=== PATIENT | female | born 1995 | race Caucasian/White ===

== ENCOUNTER 2025-03-20 13:39 | Inpatient (IN) | payer OTHER ==
[~2025-03-20] VITALS: Ht 170.2 cm; Wt 101.2 kg
[2025-03-20 13:54] VITALS: BP 135/79
[2025-03-20] MEDS ORDERED: MAGNESIUM HYDROXIDE/AL HYDROX 30 ML CUP PO PRN (14:00)
[2025-03-20] MEDS ORDERED: TERBUTALINE SULFATE 1 MG/ML AMP SUB-Q PRN (14:00)
[2025-03-20] MEDS ORDERED: LIDOCAINE HCL 1% 30 ML SDV INJ PRN (14:00)
[2025-03-20] MEDS ORDERED: LACTATED RINGER'S 1,000 ML IV PRN (14:00)
[2025-03-20] MEDS ORDERED: CALCIUM CARBONATE 500 MG CHEW PO PRN (14:00)
[2025-03-20 14:49] LABS: MCH 33.4 PG (25.6-32.2); MCHC 35.5 g/dL (32.2-35.5); MCV 94.0 fL (79.4-94.8); RBC 3.68 M/uL (3.93-5.22)
[2025-03-20 14:58] LABS: PROTEIN, RANDOM URINE 14.0 mg/dL (NOT ESTABLISHED)
[2025-03-20 15:09] LABS: AMPHETAMINES, URINE NEGATIVE (NEGATIVE); BARBITURATES, URINE NEGATIVE (NEGATIVE); BENZODIAZEPINE, URINE NEGATIVE (NEGATIVE); CANNABINOID, URINE POSITIVE (NEGATIVE); COCAINE, URINE NEGATIVE (NEGATIVE); ECSTASY, URINE NEGATIVE (NEGATIVE); FENTANYL, URINE NEGATIVE (NEGATIVE); METHADONE, URINE NEGATIVE (NEGATIVE); OPIATES, URINE NEGATIVE (NEGATIVE); OXYCODONE, URINE NEGATIVE (NEGATIVE); PHENCYCLIDINE, URINE NEGATIVE (NEGATIVE)
[2025-03-20 15:16] LABS: ALT (SGPT) 20.0 U/L (14-59); AST (SGOT) 15.0 U/L (15-37); GLOMERULAR FILTRATION RATE,EST 135.0 mL/min (>60); LACTATE DEHYDROGENASE 154.0 U/L (81-234); PROTEIN, TOTAL 7.1 g/dL (6.4-8.2); UREA NITROGEN 4.0 mg/dL (7-18)
[2025-03-20 15:31] LABS: ABO B; ANTIBODY SCREEN NEGATIVE; RH POSITIVE
[2025-03-20] MEDS ORDERED: miSOPROStol 25 MCG TAB PV SCH (18:00)
[2025-03-20] MEDS ORDERED: OXYTOCIN/0.9 % SODIUM CHLORIDE 500 ML IV SCH (18:30)
[2025-03-21] MEDS ORDERED: OXYTOCIN/0.9 % SODIUM CHLORIDE 500 ML IV SCH ×2 (09:15→23:00)
[2025-03-21] MEDS ORDERED: ROPIVACAINE 0.2% 200 ML BAG ONE (18:38)
[2025-03-21] MEDS ORDERED: ePHEDrine sulfate 5 MG/ML SYRINGE IV PRN (19:15)
[2025-03-21] MEDS ORDERED: LACTATED RINGER'S 2,000 ML IV ONE (19:15)
[2025-03-21] MEDS ORDERED: ROPIVACAINE 0.2% 200 ML BAG EPIDURAL SCH (19:15)
[2025-03-21] MEDS ORDERED: LACTATED RINGER'S 500 ML IV PRN (19:15)
[2025-03-22] MEDS ORDERED: TRANEXAMIC ACID IN NACL,ISO-OS 100 ML IV ONE (00:31)
[2025-03-22 00:52] LABS: BASOPHILS 0.1 % (0.1-1.2); EOSINOPHILS 0 % (0.7-5.8); LYMPHOCYTES 10.4 % (19.3-51.7); MCH 34.0 PG (25.6-32.2); MCHC 35.5 g/dL (32.2-35.5); MCV 95.6 fL (79.4-94.8); MONOCYTES 5.5 % (4.7-12.5); NEUTROPHILS 83.7 % (34.0-71.1); RBC 3.18 M/uL (3.93-5.22)
[2025-03-22] MEDS ORDERED: BENZOCAINE 60 ML AEROSOL TOP PRN (01:00)
[2025-03-22] MEDS ORDERED: CALCIUM CARBONATE 500 MG CHEW PO PRN (01:00)
[2025-03-22] MEDS ORDERED: IBUPROFEN 600 MG TAB PO PRN (01:00)
[2025-03-22] MEDS ORDERED: WITCH HAZEL/GLYCERIN 1 EA PAD TOP PRN (01:00)
[2025-03-22] MEDS ORDERED: ACETAMINOPHEN 325 MG TAB PO PRN (01:00)
[2025-03-22] MEDS ORDERED: LIDOCAINE 2% VISCOUS 6 ML SYR TOP ONE ×2 (01:00)
[2025-03-22] MEDS ORDERED: OXYTOCIN/0.9 % SODIUM CHLORIDE 500 ML IV SCH (01:00)
[2025-03-22] MEDS ORDERED: MAGNESIUM HYDROXIDE/AL HYDROX 30 ML CUP PO PRN (01:00)
[2025-03-22] MEDS ORDERED: HYDROCORTISONE ACETATE 25 MG SUPP PR PRN (01:00)
[2025-03-22] MEDS ORDERED: MAGNESIUM HYDROXIDE 30 ML UDC PO PRN (01:00)
[2025-03-22] MEDS ORDERED: miSOPROStol 200 MCG TAB PR ONE (02:15)
[2025-03-22] MEDS ORDERED: miSOPROStol 200 MCG TAB BUCCAL ONE (02:15)
[2025-03-22] MEDS ORDERED: TRANEXAMIC ACID IN NACL,ISO-OS 1,000 MG/100 ML PIGGYBACK IV ONE (02:15)
[2025-03-22 03:03] LABS: IS CROSSMATCH COMPATIBLE
[2025-03-22 03:03] LABS: ABO B; RH POSITIVE
[2025-03-22 06:23] LABS: BASOPHILS 0.1 % (0.1-1.2); EOSINOPHILS 0.1 % (0.7-5.8); LYMPHOCYTES 12.2 % (19.3-51.7); MCH 33.4 PG (25.6-32.2); MCHC 35.5 g/dL (32.2-35.5); MCV 94.3 fL (79.4-94.8); MONOCYTES 4.9 % (4.7-12.5); NEUTROPHILS 82.5 % (34.0-71.1); RBC 3.17 M/uL (3.93-5.22)
[2025-03-22 06:42] LABS: INR 1.1 (0.80-1.30); PROTIME 13.4 Sec (11.2-14.2)
[2025-03-22] MEDS ORDERED: SENNOSIDES/DOCUSATE 1 EA TAB PO SCH (09:00)
--- NOTE | 2025-03-22 12:39 | PR ---
[facility] [address] [facility] [place], [place] [address] Signed PP Progress Notes Datetime Report Generated by CPN: 03/22/2025 12:39 SUBJECTIVE: [id number] Pain: Within Normal Limits Nausea/Vomiting: Denies Vital Signs: [id number] Vital Signs: Reviewed; Within Normal Limits Respiratory: Normal Abdomen/Uterus: Normal Lochia: Normal Incision: Not Applicable Progress: Normal IMPRESSION/PLAN/PROCEDURES: [id number] Impression: Normal Progression Plan: Continue Present Management Progress Notes: DOD check in. Pt doing really well. BF without difficulty. States she was a little dizzy the first time out of bed but has since resolved. Lochia is light. VS are stable. Labs are stable. No concerns. Anticipate discharge tomorrow morning. Signing Physician: Yajaira Sifuentes CNM Copies: ~ *Electronically Signed* 03/22/25 1239 YAJAIRA SIFUENTES CNM PATIENT NAME: MARCELO BLANC PROGRESS NOTE DATE OF : 89 PHYSICIAN: YAJAIRA SIFUENTES CNM RPT #: [id number] REPORT IS CONFIDENTIAL AND NOT TO BE RELEASED WITHOUT AUTHORIZATION
[2025-03-23 05:55] LABS: MCH 33.5 PG (25.6-32.2); MCHC 34.9 g/dL (32.2-35.5); MCV 95.8 fL (79.4-94.8); RBC 2.84 M/uL (3.93-5.22)
--- NOTE | 2025-03-23 08:09 | PR ---
[facility] [address] [facility] [place], [place] [address] Signed PP Progress Notes Datetime Report Generated by CPN: 03/23/2025 08:09 Pain: Within Normal Limits Nausea/Vomiting: Denies Vital Signs: Reviewed; Within Normal Limits Respiratory: Normal Abdomen/Uterus: Normal Lochia: Normal Vulva/Perineum: Normal Breasts: Not Done CVA Tenderness: Not Done Extremities: Normal Incision: Not Applicable Progress: Normal Impression: Normal Progression Plan: Discharge Procedures: None Progress Notes: PPD #1 S/P . Pt is doing really well. BF without difficulty. Denies dizziness with ambulation. BPs have normalized. Lochia is light. She desires discharge home today. PP PreE precautions reviewed. F/U in office in 2 weeks. D/C instructions reviewed. Signing Physician: Yajaira Sifuentes CNM Copies: ~ *Electronically Signed* 03/23/25 08 YAJAIRA SIFUENTES CNM PATIENT NAME: MARCELO BLANC PROGRESS NOTE DATE OF : 97 PHYSICIAN: YAJAIRA SIFUENTES CNM RPT #: [id number] REPORT IS CONFIDENTIAL AND NOT TO BE RELEASED WITHOUT AUTHORIZATION
== END 2025-03-23 10:30 | disposition home or self-care (01) | DRG 806 ==
LOC: FBC 13:39
PROVIDERS: ADMIT Advanced Practice Midwife; ATTEND Advanced Practice Midwife
PROC: 10E0XZZ Delivery of Products of Conception, External Approach (ICD-10-PCS; principal; 2025-03-21)
PROC: 0KQM0ZZ Repair Perineum Muscle, Open Approach (ICD-10-PCS; 2025-03-21)
PROC: 10907ZC Drainage of Amniotic Fluid, Therapeutic from Products of Conception, Via Natural or Artificial Opening (ICD-10-PCS; 2025-03-21)
PROC: 3E0DXGC Introduction of Other Therapeutic Substance into Mouth and Pharynx, External Approach (ICD-10-PCS; 2025-03-21)
DX: O13.4 Gestational [pregnancy-induced] hypertension without significant proteinuria, complicating childbirth (principal); D62 Acute posthemorrhagic anemia; Z37.0 Single live birth; O98.52 Other viral diseases complicating childbirth; Z3A.38 38 weeks gestation of pregnancy; O72.1 Other immediate postpartum hemorrhage; O90.81 Anemia of the puerperium; O76 Abnormality in fetal heart rate and rhythm complicating labor and delivery; O70.1 Second degree perineal laceration during delivery; B00.9 Herpesviral infection, unspecified; Z88.8 Allergy status to other drugs, medicaments and biological substances; Z88.0 Allergy status to penicillin; Z79.899 Other long term (current) drug therapy
CPT/HCPCS: 01960; 36415; 51701; 80053; 80307; 82565; 82570; 83615; 84156; 84550; 85025; 85027; 85610; 85730; 86850; 86900; 86901; 86922; J2405; J2795; J7121; Q0177

== ENCOUNTER 2025-04-11 19:17 | Emergency (ER) | payer OTHER ==
[~2025-04-11] VITALS: Ht 170.2 cm; Wt 98.0 kg
--- OUTSIDE RECORDS SUMMARY | ~2025-04-11 | XMS | Continuity of Care Document ---
Demographics + + + | Address | [address] | | | [place] [address] | + + + | Preferred Language | Unknown | + + + | Marital Status | | + + + | Rastafari Affiliation | Unknown | + + + | Race | White | + + + | Ethnic Group | Not or | + + + Author + + + | Author | [place] | + + + | Organization | [place] | + + + | Address | [address] | | | [place] [address] | + + + | Phone | | + + + Care Team Providers + + + + | Care Paraprofessional Education Assistant Name | Role | Phone | + + + + Unavailable | Unavailable | + + + + Unavailable | Unavailable | + + + + Allergies No information. Encounters No information. Functional Status No information. Immunizations No information. Medications No information. Problems + + + + | date | description | facility | + + + + | 2025-03-23 00:00 | Anemia | [facility] | | | | [facility] | + + + + Procedures No information. Results/Labs +--------+--------+ +---------+--------+---------+ | test | date | facility | value | unit | notes | +--------+--------+ +---------+--------+---------+ + + | Result panel 1 | + + + + + +------+---------+ + | Glucose | 2025-03-20 | | 90 | mg/dL | (missing) | | [facility] | 14:30:08 | [facility] | | | | + + + +------+---------+ + + + | Result panel 2 | + + + + + +-----+---------+ + | BUN | 2025-03-20 | | 4 | mg/dL | (missing) | | [facility] | 14:30:08 | [facility] | | | | + + + +-----+---------+ + + + | Result panel 3 | + + + + + +--------+---------+ + | Creat | 2025-03-20 | | 0.45 | mg/dL | (missing) | | SerPl-mCnc | 14:30:08 | [facility] | | | | + + + +--------+---------+ + + + | Result panel 4 | + + + + + +-------+ + + | eGFRcr | 2025-03-20 | | 135 | (missing) | (missing) | | SerPlBld | 14:30:08 | [facility] | | | | | CKD-EPI 2020 | [facility] | | | | + + + +-------+ + + + + | Result panel 5 | + + + + + +--------+ + + | BUN/Creat | 2025-03-20 | | 8.88 | (missing) | (missing) | | SerPl | 14:30:08 | [facility] | | | | + + + +--------+ + + + + | Result panel 6 | + + + + + +-------+ + + | Sodium | 2025-03-20 | | 135 | (missing) | (missing) | | SerPl-sCnc | 14:30:08 | [facility] | | | | + + + +-------+ + + + + | Result panel 7 | + + + + + +-------+ + + | Potassium | 2025-03-20 | | 3.7 | (missing) | (missing) | | SerPl-sCnc | 14:30:08 | [facility] | | | | + + + +-------+ + + + + | Result panel 8 | + + + + + +-------+ + + | Chloride | 2025-03-20 | | 101 | (missing) | (missing) | | SerPl-sCnc | 14:30:08 | [facility] | [facility] | | | | + + + +-------+ + + + + | Result panel 9 | + + + + + +------+ + + | CO2 | 2025-03-20 | | 25 | (missing) | (missing) | | SerPl-sCnc | 14:30:08 | [facility] | [facility] | | | | + + + +------+ + + + + | Result panel 10 | + + + + + +--------+ + + | Anion Gap | 2025-03-20 | | 12.7 | (missing) | (missing) | | SerPl | 14:30:08 | [facility] | | | | | Calculated.4 | [facility] | | | | + + + +--------+ + + + + | Result panel 11 | + + + + + +-------+---------+ + | Urate | 2025-03-20 | | 4.4 | mg/dL | (missing) | | [facility] | 14:30:08 | [facility] | | | | [facility] | | | | + + + +-------+---------+ + + + | Result panel 12 | + + + + + +-------+---------+ + | Calcium | 2025-03-20 | | 8.9 | mg/dL | (missing) | | SerPl-mCnc | 14:30:08 | [facility] | | | | + + + +-------+---------+ + + + | Result panel 13 | + + + + + +-------+ + + | Prot | 2025-03-20 | | 7.1 | (missing) | (missing) | | SerPl-mCnc | 14:30:08 | [facility] | | | | + + + +-------+ + + + + | Result panel 14 | + + + + + +-------+ + + | Albumin | 2025-03-20 | | 2.9 | (missing) | (missing) | | SerPl-mCnc | 14:30:08 | [facility] | | [facility] | | | | + + + +-------+ + + + + | Result panel 15 | + + + + + +-------+ + + | Globulin | 2025-03-20 | | 4.2 | (missing) | (missing) | | Ser-mCnc | 14:30:08 | [facility] | [facility] | | | | + + + +-------+ + + + + | Result panel 16 | + + + + + +--------+ + + | | 2025-03-20 | | 0.69 | (missing) | (missing) | | Albumin/Glob | 14:30:08 | [facility] | | | | | SerPl | [facility] | | | | + + + +--------+ + + + + | Result panel 17 | + + + + + +-------+---------+ + | Bilirub | 2025-03-20 | | 0.6 | mg/dL | (missing) | | SerPl-mCnc | 14:30:08 | [facility] | | | | + + + +-------+---------+ + + + | Result panel 18 | + + + + + +------+ + + | AST | 2025-03-20 | | 15 | (missing) | (missing) | | SerPl-cCnc | 14:30:08 | [facility] | | | | + + + +------+ + + + + | Result panel 19 | + + + + + +------+ + + | ALT | 2025-03-20 | | 20 | (missing) | (missing) | | SerPl-cCnc | 14:30:08 | [facility] | | | | + + + +------+ + + + + | Result panel 20 | + + + + + +-------+ + + | ALP | 2025-03-20 | | 212 | (missing) | (missing) | | [facility] | 14:30:08 | [facility] | | | | + + + +-------+ + + + + | Result panel 21 | + + + + + +-------+ + + | | 2025-03-20 | | 154 | (missing) | (missing) | | (unavailable | 14:30:08 | [facility] | | | | | ) | | - | | | | | | | [facility] | | | | + + + +-------+ + + + + | Result panel 22 | + + + + + +---------+---------+ + | Creat | 2025-03-20 | | 47.64 | mg/dL | (missing) | | [facility] | 14:30:08 | [facility] | | [facility] | | | | + + + +---------+---------+ + + + | Result panel 23 | + + + + + + + + + | Prot/Creat | 2025-03-20 | | 0.2900 | (missing) | (missing) | | Ur-Rto | 14:30:08 | [facility] | | | | + + + + + + + + + | Result panel 24 | + + + + + +------+---------+ + | Prot | 2025-03-20 | | 14 | mg/dL | (missing) | | Ur-mCnc | 14:30:08 | [facility] | | | | [facility] | | | | + + + +------+---------+ + + + | Result panel 25 | + + + + + + + + + | | 2025-03-20 | | NEGATIVE | (missing) | (missing) | | Amphetamines | 14:30:08 | [facility] | | | | | Ur Ql | [facility] | Scn>500 | | [facility] | [facility] | ng/mL | | [facility] | | | | + + + + + + + + + | Result panel 26 | + + + + + + + + + | | 2025-03-20 | | NEGATIVE | (missing) | (missing) | | Barbiturates | 14:30:08 | [facility] | | | | | Ur Ql | [facility] - [facility] | | [facility] | | Scn>300 | | [facility] | | | | ng/mL | | [facility] | | | | + + + + + + + + + | Result panel 27 | + + + + + + + + + | Benzodiaz | 2025-03-20 | | NEGATIVE | (missing) | (missing) | | Ur Ql | 14:30:08 | [facility] | | | | | Scn>300 | [facility] ng/mL | [facility] | | | | + + + + + + + + + | Result panel 28 | + + + + + + + + + | Cocaine Ur | 2025-03-20 | | NEGATIVE | (missing) | (missing) | | Ql Scn | 14:30:08 | [facility] | | | | | | [facility] | | | | + + + + + + + + + | Result panel 29 | + + + + + + + + + | | 2025-03-20 | | NEGATIVE | (missing) | (missing) | | Buprenorphin | 14:30:08 | [facility] | | | | | e Nehemiah Rossi Scn | [facility] | | | | + + + + + + + + + | Result panel 30 | + + + + + + + + + | oxyCODONE | 2025-03-20 | | NEGATIVE | (missing) | (missing) | | Ur Ql Scn | 14:30:08 | [facility] | | | | | | [facility] | | | | + + + + + + + + + | Result panel 31 | + + + + + + + + + | MDMA Ur Ql | 2025-03-20 | | NEGATIVE | (missing) | (missing) | | Scn | 30:08 | [facility] | | | | | | [facility] | | | | + + + + + + + + + | Result panel 32 | + + + + + + + + + | Methadone | 2025-03-20 | | NEGATIVE | (missing) | (missing) | | Ur Ql | 14:30:08 | [facility] | | | | | Scn>300 | [facility] ng/mL | [facility] | | | | + + + + + + + + + | Result panel 33 | + + + + + + + + + | Opiates Ur | 2025-03-20 | | NEGATIVE | (missing) | (missing) | | Ql Scn | 14:30:08 | [facility] | | | | | | [facility] | | | | + + + + + + + + + | Result panel 34 | + + + + + + + + + | PCP Ur Ql | 2025-03-20 | | NEGATIVE | (missing) | (missing) | | Scn>25 ng/mL | 14:30:08 | [facility] | | | | + + + + + + + + + | Result panel 35 | + + + + + + + + + | THC Ur Ql | 2025-03-20 | | POSITIVE | (missing) | (missing) | | Scn>50 ng/mL | 14:30:08 | [facility] | | | | | | [facility] | | | | + + + + + + + + + | Result panel 36 | + + + + + + + + + | fentaNYL Ur | 2025-03-20 | | NEGATIVE | (missing) | (missing) | | Ql Scn | 14:30:08 | [facility] | | | | | | [facility] | | | | + + + + + + + + + | Result panel 37 | + + + + + + + + + | IAT Poly-Sp | 2025-03-20 | | NEGATIVE | (missing) | (missing) | | Reag SerPl | 14:30:08 | [facility] | | | | | Ql | [facility] | | | | + + + + + + + + + | Result panel 38 | + + + + + + + + + | Karlos XM | 2025-03-20 | | COMPATIBLE | (missing) | (missing) | | SerPl Imm | :30:08 | [facility] | | | | | Spin-Imp | [facility] | | | | + + + + + + + + + | Result panel 39 | + + + + + + + + + | Karlos XM | 2025-03-20 | | COMPATIBLE | (missing) | (missing) | | SerPl Imm | 14:30:08 | [facility] | | | | | Spin-Imp | [facility] | | | | + + + + + + + + + | Result panel 40 | + + + + + + + + + | Transf Band | 2025-03-20 | | BLOOD IN | (missing) | (missing) | | Num Patient | 14:30:08 | [facility] | LAB | | | | | [facility] | | | | + + + + + + + + + | Result panel 41 | + + + + + + + + + | Rh Bld | 2025-03-22 | | POSITIVE | (missing) | (missing) | | | 00:46:08 | [facility] | | | | | | [facility] | | | | + + + + + + + + + | Result panel 42 | + + + + + +-----+ + + | ABO Group | 2025-03-22 | | B | (missing) | (missing) | | Bld | 00:46:08 | [facility] | | | | | | [facility] | | | | + + + +-----+ + + + + | Result panel 43 | + + + + + +--------+ + + | Neutrophils | 2025-03-22 | | 82.5 | (missing) | (missing) | | NFr Bld | 05:33:08 | [facility] | | | | | Auto | | [facility] | | | | + + + +--------+ + + + + | Result panel 44 | + + + + + +--------+ + + | Lymphocytes | 2025-03-22 | | 12.2 | (missing) | (missing) | | NFr Bld | 05:33:08 | [facility] | | | | | Auto | | [facility] | | | | + + + +--------+ + + + + | Result panel 45 | + + + + + +-------+ + + | Monocytes | 2025-03-22 | | 4.9 | (missing) | (missing) | | NFr Bld Auto | 05:33:08 | [facility] | | | | | | [facility] | | | | + + + +-------+ + + + + | Result panel 46 | + + + + + +-------+ + + | Eosinophil | 2025-03-22 | | 0.1 | (missing) | (missing) | | NFr Bld Auto | 05:33:08 | [facility] | | | | [facility] | | | | + + + +-------+ + + + + | Result panel 47 | + + + + + +-------+ + + | Basophils | 2025-03-22 | | 0.1 | (missing) | (missing) | | NFr Bld Auto | 05:33:08 | [facility] | | | | | | [facility] | | | | + + + +-------+ + + + + | Result panel 48 | + + + + + +--------+ + + | Prothrombin | 2025-03-22 | | 13.4 | (missing) | (missing) | | time | 05:33:08 | [facility] | | | | | | [facility] | | | | + + + +--------+ + + + + | Result panel 49 | + + + + + +--------+ + + | INR PPP | 2025-03-22 | | 1.10 | (missing) | (missing) | | | 05:33:08 | [facility] | | | | + + + +--------+ + + + + | Result panel 50 | + + + + + +--------+ + + | aPTStephanie PPP | 2025-03-22 | | 28.6 | (missing) | (missing) | | | 05:33:08 | [facility] | [facility] | | | | [facility] | | | | + + + +--------+ + + + + | Result panel 51 | + + + + + +--------+ + + | WBC # Bld | 2025-03-23 | | 6.63 | (missing) | (missing) | | Auto | 05:46:08 | [facility] | | | | | | [facility] | | | | + + + +--------+ + + + + | Result panel 52 | + + + + + +--------+ + + | RBC # Bld | 2025-03-23 | | 2.84 | (missing) | (missing) | | Auto | 05:46:08 | [facility] | [facility] | | | | + + + +--------+ + + + + | Result panel 53 | + + + + + +-------+ + + | Hgb | 2025-03-23 | | 9.5 | (missing) | (missing) | | Bld-nc | 05:46:08 | [facility] | | | | | | | - | | | | | | | [facility] | | | | + + + +-------+ + + + + | Result panel 54 | + + + + + +--------+ + + | Hct VFr.DF | 2025-03-23 | | 27.2 | (missing) | (missing) | | Bld Auto | 05:46:08 | [facility] | | | | + + + +--------+ + + + + | Result panel 55 | + + + + + +--------+ + + | RBC Auto | 2025-03-23 | | 95.8 | (missing) | (missing) | | | 05:46:08 | [facility] | | | | + + + +--------+ + + + + | Result panel 56 | + + + + + +--------+ + + | MCH RBC Qn | 2025-03-23 | | 33.5 | (missing) | (missing) | | Auto | 05:46:08 | [facility] | | | | + + + +--------+ + + + + | Result panel 57 | + + + + + +--------+ + + | MCHC RBC | 2025-03-23 | | 34.9 | (missing) | (missing) | | Auto-EntMCnc | 05:46:08 | [facility] | | | | + + + +--------+ + + + + | Result panel 58 | + + + + + +-------+ + + | Platelet # | 2025-03-23 | | 135 | (missing) | (missing) | | Bld Auto | 05:46:08 | [facility] | | | | + + + +-------+ + + Social History +--------+ + + | date | description | facility | +--------+ + + Vital Signs + + + +---------+ | date | measurement | value | units | + + + +---------+ | 2025-03-20 00:00 | BMI | 34.9 | kg/m2 | + + + +---------+ | 2025-03-20 00:00 | BP_diastolic | 79 | mmHg | + + + +---------+ | 2025-03-20 00:00 | BP_systolic | 135 | mmHg | + + + +---------+ | 2025-03-20 00:00 | height_metric | 170.2 | cm | + + + +---------+ | 2025-03-20 00:00 | height_standard | 67.148890 | in | + + + +---------+ | 2025-03-20 00:00 | weight_metric | 101.2 | kg | + + + +---------+ | 2025-03-20 00:00 | weight_standard | 223.107 | lb | + + + +---------+"
[2025-04-11 20:21] LABS: BASOPHILS 0.2 % (0.1-1.2); EOSINOPHILS 0.6 % (0.7-5.8); LYMPHOCYTES 21.1 % (19.3-51.7); MCH 32.0 PG (25.6-32.2); MCHC 33.1 g/dL (32.2-35.5); MCV 96.6 fL (79.4-94.8); MONOCYTES 6.8 % (4.7-12.5); NEUTROPHILS 71.1 % (34.0-71.1); RBC 3.28 M/uL (3.93-5.22)
[2025-04-11] MEDS ORDERED: SODIUM CHLORIDE 0.9% 500 ML IV PRN (20:30)
[2025-04-11 20:53] LABS: ALT (SGPT) 25.0 U/L (14-59); AST (SGOT) 10.0 U/L (15-37); GLOMERULAR FILTRATION RATE,EST 131.0 mL/min (>60); PROTEIN, TOTAL 7.1 g/dL (6.4-8.2); UREA NITROGEN 7.0 mg/dL (7-18)
[2025-04-11] MEDS ORDERED: MEGESTROL ACETA40 MG PO (22:33)
[2025-04-11 23:56] VITALS: BP 125/60
== END 2025-04-11 23:35 | disposition home or self-care (01) ==
LOC: ED 19:17
PROVIDERS: Family Medicine
DX: O72.1 Other immediate postpartum hemorrhage (principal); Z88.0 Allergy status to penicillin; Z87.891 Personal history of nicotine dependence
CPT/HCPCS: 36415; 80053; 84702; 85025; 99284